=== PATIENT | female | born 1950 | race Caucasian/White ===

== ENCOUNTER 2022-09-24 11:30 | Inpatient (IN) ==
[2022-09-24] MEDS ORDERED: NS 1/2 1,000 ML IV 1,000 ML IV ONE (13:15)
[2022-09-24] MEDS: NS 1/2 1,000 ML IV 1,000 ML IV SCH (13:20)
[2022-09-24] MEDS: ROBITUSSIN DM PO SCH ×3 (13:20→20:21)
[2022-09-24] MEDS: LEVAQUIN PREMIX IV 750 MG 750 MG/150 ML BAG IV SCH (13:21)
[2022-09-24] MEDS: FORTAZ or TAZICEF VIAL INJ 1 G in NS 100 ML IV 100 ML IV SCH ×3 (13:21→22:03)
[2022-09-24 13:47] VITALS: BMI 25.8
[2022-09-24 14:06] LABS: BASOPHILS # (AUTO) 0.1 X10^3/uL (0.0-0.1); BASOPHILS % (AUTO) 0.7 % (0.2-1.0); EOSINOPHILS # (AUTO) 0.1 x10^3/uL (0.0-0.2); EOSINOPHILS % (AUTO) 0.7 % (0.9-2.9); HEMATOCRIT 37.4 % (36.0-47.0); HEMOGLOBIN 12.6 g/dL (12.0-16.0); LYMPHOCYTES # (AUTO) 2.4 X10^3/uL (1.3-2.9); LYMPHOCYTES % (AUTO) 26.5 % (21.0-51.0); MEAN CORPUSCULAR HEMOGLOBIN 28.6 pg (27.0-34.0); MEAN CORPUSCULAR HGB CONC 33.7 g/dL (33.0-35.0); MEAN CORPUSCULAR VOLUME 84.8 fL (80.0-100.0); MEAN PLATELET VOLUME 10.1 fL (7.4-11.0); MONOCYTES # (AUTO) 0.8 x10^3/uL (0.3-0.8); MONOCYTES % (AUTO) 8.8 % (0.0-13.0); NEUTROPHILS # (AUTO) 5.7 x10^3/uL (2.2-4.8); NEUTROPHILS % (AUTO) 63.3 % (42.0-75.0); RED BLOOD COUNT 4.41 X10^6/uL (3.5-5.4)
[2022-09-24 14:13] LABS: ALANINE AMINOTRANSFERASE 26 Units/L (12-78); ALBUMIN 3.6 g/dL (3.4-5.0); ALKALINE PHOSPHATASE 86 Units/L (46-116); ASPARTATE AMINO TRANSFERASE 17 Units/L (15-37); BLOOD UREA NITROGEN 23 mg/dL (7-18); CALCIUM 9.6 mg/dL (8.5-10.1); CARBON DIOXIDE 24.7 mmol/L (21-32); CHLORIDE 105 mmol/L (98-107); CREATININE 1.04 mg/dL (0.55-1.02); SODIUM 141 mmol/L (136-145); TOTAL PROTEIN 6.9 g/dL (6.4-8.2); eGFR NON BLACK RACES 56 (>60)
[2022-09-24] MEDS ORDERED: TYLENOL 500 MG TAB EXTRA STRENGTH PO ONE (16:16)
[2022-09-24] MEDS: DUONEB 0.5 MG/3 MG (3 mL) NEB SCH ×2 (17:58→20:25)
[2022-09-24] MEDS ORDERED: REMDESIVIR 200 MG in NS 250 ML IV 250 ML IV ONE (19:13)
[2022-09-24] MEDS ORDERED: PULMICORT NEB TX 0.5 MG NEB ONE (19:17)
[2022-09-24] MEDS: TUSSIONEX PENNKINETIC SUSP PO PRN (20:21)
[2022-09-24] MEDS: PULMICORT NEB TX 0.5 MG NEB SCH (20:25)
[2022-09-24] MEDS: SOLU-Medrol 125 MG VIAL IVP SCH (22:03)
--- NOTE | 2022-09-24 22:25 | RAD ---
HISTORYPNEUMONIASTUDYCHEST, PA/LAT ADULTCOMPARISONNone.TECHNIQUEFrontal and lateral views of the chest were obtained.FINDINGSThe heart is not enlarged. There is no focal infiltrate or effusion. There is no pneumothorax. The osseous structures are intact. There is evidence for anterior cervical interbody fusion of the lower cervical spine.IMPRESSIONNo active pulmonary disease.Electronically signed by: Kristy Hunter (Sep 24, 2022 22:24:11)
[2022-09-25] MEDS: NS 1/2 1,000 ML IV 1,000 ML IV SCH ×3 (05:36→16:09)
[2022-09-25] MEDS: SOLU-Medrol 125 MG VIAL IVP SCH ×3 (05:36→22:09)
[2022-09-25] MEDS: FORTAZ or TAZICEF VIAL INJ 1 G in NS 100 ML IV 100 ML IV SCH ×3 (05:36→22:07)
[2022-09-25 06:25] LABS: BASOPHILS % (AUTO) 0.5 % (0.2-1.0); EOSINOPHILS % (AUTO) 0.1 % (0.9-2.9); HEMATOCRIT 39.3 % (36.0-47.0); HEMOGLOBIN 13.1 g/dL (12.0-16.0); LYMPHOCYTES # (AUTO) 1.1 X10^3/uL (1.3-2.9); LYMPHOCYTES % (AUTO) 15.3 % (21.0-51.0); MEAN CORPUSCULAR HEMOGLOBIN 28.6 pg (27.0-34.0); MEAN CORPUSCULAR HGB CONC 33.3 g/dL (33.0-35.0); MEAN CORPUSCULAR VOLUME 85.9 fL (80.0-100.0); MEAN PLATELET VOLUME 9.7 fL (7.4-11.0); MONOCYTES # (AUTO) 0.1 x10^3/uL (0.3-0.8); MONOCYTES % (AUTO) 1.6 % (0.0-13.0); NEUTROPHILS % (AUTO) 82.5 % (42.0-75.0); RED BLOOD COUNT 4.58 X10^6/uL (3.5-5.4); RED CELL DISTRIBUTION WIDTH 13.7 % (11.6-16.5); WHITE BLOOD COUNT 7.3 X10^3/uL (3.6-10.0)
[2022-09-25 06:37] LABS: ALANINE AMINOTRANSFERASE 27 Units/L (12-78); ALBUMIN 3.3 g/dL (3.4-5.0); ALKALINE PHOSPHATASE 103 Units/L (46-116); ASPARTATE AMINO TRANSFERASE 20 Units/L (15-37); BLOOD UREA NITROGEN 20 mg/dL (7-18); CALCIUM 9.4 mg/dL (8.5-10.1); CARBON DIOXIDE 24.4 mmol/L (21-32); CHLORIDE 106 mmol/L (98-107); COR NA(FOR HYPERGLY) 143 mmol/L (136-145); CREATININE 1.13 mg/dL (0.55-1.02); SODIUM 141 mmol/L (136-145); TOTAL PROTEIN 6.9 g/dL (6.4-8.2); eGFR NON BLACK RACES 50 (>60)
[2022-09-25] MEDS: LEVAQUIN PREMIX IV 750 MG 750 MG/150 ML BAG IV SCH (08:16)
[2022-09-25] MEDS: ROBITUSSIN DM PO SCH ×4 (08:16→22:11)
[2022-09-25] MEDS: DUONEB 0.5 MG/3 MG (3 mL) NEB SCH ×2 (08:45→12:21)
[2022-09-25] MEDS: PULMICORT NEB TX 0.5 MG NEB SCH (08:45)
[2022-09-25] MEDS: PATIENT'S HOME MEDICATION PO SCH (11:21)
[2022-09-25] MEDS ORDERED: XOPENEX 1.25 MG/3 ML NEBULE NEB ONE (12:26)
[2022-09-25] MEDS: XOPENEX 1.25 MG/3 ML NEBULE NEB SCH ×2 (12:40→17:23)
[2022-09-25] MEDS ORDERED: NS 1/2 1,000 ML IV 1,000 ML IV ONE (13:07)
[2022-09-25] MEDS: COLACE CAP 100 MG PO PRN (13:22)
[2022-09-25] MEDS: MILK OF MAGNESIA PO PRN (13:23)
[2022-09-25] MEDS: PROTONIX TAB 40 MG PO SCH ×2 (13:23→22:08)
[2022-09-25] MEDS: COZAAR PO SCH (13:23)
[2022-09-25] MEDS ORDERED: REMDESIVIR 100 MG in NS 250 ML IV 250 ML IV SCH (21:00)
[2022-09-25] MEDS: AMBIEN PO PRN (22:16)
[2022-09-25] MEDS: NORCO 10/325 TAB PO PRN (22:16)
[2022-09-25] MEDS: TUSSIONEX PENNKINETIC SUSP PO PRN (22:16)
[2022-09-26] MEDS ORDERED: CATAPRES TAB 0.1 MG PO ONE ×2 (00:38→17:27)
--- NOTE | 2022-09-26 01:31 | EKG ---
Test Reason : hypertension protocol Blood Pressure : */* mmHG Vent. Rate : 61 BPM Atrial Rate : 61 BPM P-R Int : 154 ms QRS Dur : 86 ms QT Int : 440 ms P-R-T Axes : 63 -5 62 degrees QTc Int : 442 ms Normal sinus rhythm Minimal voltage criteria for LVH, may be normal variant ( R in aVL ) Borderline ECG No previous ECGs available Confirmed by Mino Salazar ([id number]) on 09/26/2022 9:38:37 AM Referred By: Confirmed By: Mino Salazar
[2022-09-26] MEDS ORDERED: VALIUM PO ONE (02:47)
[2022-09-26] MEDS ORDERED: VALIUM ONE (02:50)
[2022-09-26 05:00] LABS: BASOPHILS # (AUTO) 0.1 X10^3/uL (0.0-0.1); BASOPHILS % (AUTO) 0.7 % (0.2-1.0); HEMATOCRIT 36.8 % (36.0-47.0); HEMOGLOBIN 12.1 g/dL (12.0-16.0); LYMPHOCYTES # (AUTO) 1.3 X10^3/uL (1.3-2.9); LYMPHOCYTES % (AUTO) 9.4 % (21.0-51.0); MEAN CORPUSCULAR HEMOGLOBIN 28.1 pg (27.0-34.0); MEAN CORPUSCULAR HGB CONC 32.9 g/dL (33.0-35.0); MEAN CORPUSCULAR VOLUME 85.5 fL (80.0-100.0); MEAN PLATELET VOLUME 9.9 fL (7.4-11.0); MONOCYTES # (AUTO) 0.5 x10^3/uL (0.3-0.8); MONOCYTES % (AUTO) 3.5 % (0.0-13.0); NEUTROPHILS # (AUTO) 12.1 x10^3/uL (2.2-4.8); NEUTROPHILS % (AUTO) 86.4 % (42.0-75.0); WHITE BLOOD COUNT 13.9 X10^3/uL (3.6-10.0)
[2022-09-26 05:17] LABS: ALANINE AMINOTRANSFERASE 24 Units/L (12-78); ALBUMIN 3.4 g/dL (3.4-5.0); ALKALINE PHOSPHATASE 111 Units/L (46-116); ASPARTATE AMINO TRANSFERASE 13 Units/L (15-37); BLOOD UREA NITROGEN 16 mg/dL (7-18); CALCIUM 9.5 mg/dL (8.5-10.1); CARBON DIOXIDE 25.3 mmol/L (21-32); CHLORIDE 109 mmol/L (98-107); COR NA(FOR HYPERGLY) 146 mmol/L (136-145); CREATININE 1.06 mg/dL (0.55-1.02); SODIUM 144 mmol/L (136-145); TOTAL PROTEIN 6.6 g/dL (6.4-8.2); eGFR NON BLACK RACES 54 (>60)
[2022-09-26] MEDS ORDERED: NS 1/2 1,000 ML IV 1,000 ML IV ONE (05:48)
[2022-09-26] MEDS: NS 1/2 1,000 ML IV 1,000 ML IV SCH (05:50)
[2022-09-26] MEDS: SOLU-Medrol 125 MG VIAL IVP SCH (05:51)
[2022-09-26] MEDS: FORTAZ or TAZICEF VIAL INJ 1 G in NS 100 ML IV 100 ML IV SCH (05:52)
[2022-09-26] MEDS: XOPENEX 1.25 MG/3 ML NEBULE NEB SCH ×4 (08:37→21:13)
[2022-09-26] MEDS: PULMICORT NEB TX 0.5 MG NEB SCH ×2 (08:37→21:13)
[2022-09-26] MEDS ORDERED: PROPRANOLOL 80 MG PO SCH (09:00)
[2022-09-26] MEDS: LEVAQUIN PREMIX IV 750 MG 750 MG/150 ML BAG IV SCH (09:13)
[2022-09-26] MEDS: PROTONIX TAB 40 MG PO SCH ×2 (09:13→21:23)
[2022-09-26] MEDS: COZAAR PO SCH (09:13)
[2022-09-26] MEDS: PATIENT'S HOME MEDICATION PO SCH (09:14)
[2022-09-26] MEDS: ROBITUSSIN DM PO SCH ×3 (09:17→21:24)
[2022-09-26] MEDS: TUSSIONEX PENNKINETIC SUSP PO PRN ×2 (09:21→19:51)
[2022-09-26] MEDS: NORCO 10/325 TAB PO PRN ×2 (11:38→19:50)
[2022-09-26] MEDS ORDERED: SOLU-Medrol 125 MG VIAL IVP SCH (14:00)
[2022-09-26] MEDS ORDERED: CATAPRES TAB 0.1 MG ONE (17:31)
[2022-09-26] MEDS: COLACE CAP 100 MG PO PRN (19:49)
[2022-09-26] MEDS: AMBIEN PO PRN (19:49)
[2022-09-26] MEDS: MILK OF MAGNESIA PO PRN (19:51)
[2022-09-27 05:58] LABS: BASOPHILS # (AUTO) 0.1 X10^3/uL (0.0-0.1); EOSINOPHILS % (AUTO) 0.2 % (0.9-2.9); HEMATOCRIT 36.7 % (36.0-47.0); LYMPHOCYTES # (AUTO) 3.1 X10^3/uL (1.3-2.9); LYMPHOCYTES % (AUTO) 26.7 % (21.0-51.0); MEAN CORPUSCULAR HEMOGLOBIN 28.1 pg (27.0-34.0); MEAN CORPUSCULAR HGB CONC 32.7 g/dL (33.0-35.0); MEAN CORPUSCULAR VOLUME 85.8 fL (80.0-100.0); MEAN PLATELET VOLUME 10.1 fL (7.4-11.0); MONOCYTES # (AUTO) 0.7 x10^3/uL (0.3-0.8); MONOCYTES % (AUTO) 6.2 % (0.0-13.0); NEUTROPHILS # (AUTO) 7.7 x10^3/uL (2.2-4.8); NEUTROPHILS % (AUTO) 65.9 % (42.0-75.0); RED BLOOD COUNT 4.28 X10^6/uL (3.5-5.4); RED CELL DISTRIBUTION WIDTH 14.5 % (11.6-16.5); WHITE BLOOD COUNT 11.8 X10^3/uL (3.6-10.0)
[2022-09-27 06:08] LABS: ALANINE AMINOTRANSFERASE 20 Units/L (12-78); ALBUMIN 3.3 g/dL (3.4-5.0); ALKALINE PHOSPHATASE 98 Units/L (46-116); ASPARTATE AMINO TRANSFERASE 12 Units/L (15-37); BLOOD UREA NITROGEN 23 mg/dL (7-18); CALCIUM 9.3 mg/dL (8.5-10.1); CARBON DIOXIDE 28.3 mmol/L (21-32); CHLORIDE 108 mmol/L (98-107); COR CA(FOR HYPOALB) 9.9 mg/dL (8.5-10.1); CREATININE 1.04 mg/dL (0.55-1.02); SODIUM 143 mmol/L (136-145); TOTAL PROTEIN 6.1 g/dL (6.4-8.2); eGFR NON BLACK RACES 56 (>60)
[2022-09-27] MEDS ORDERED: MICRO K EXTEN CAP 10 MEQ PO PRN (06:21)
[2022-09-27] MEDS ORDERED: K-DUR TAB 20 MEQ PO PRN (06:21)
[2022-09-27] MEDS ORDERED: POTASSIUM CHLORIDE LIQ 20 MEQ UDC PO PRN (06:21)
[2022-09-27] MEDS ORDERED: KLOR-CON PO PRN (06:21)
[2022-09-27 07:38] VITALS: BP 196/81
[2022-09-27] MEDS: PULMICORT NEB TX 0.5 MG NEB SCH (08:45)
[2022-09-27] MEDS: XOPENEX 1.25 MG/3 ML NEBULE NEB SCH (08:45)
[2022-09-27] MEDS ORDERED: DECADRON TAB PO SCH (09:00)
[2022-09-27] MEDS: ROBITUSSIN DM PO SCH (09:15)
[2022-09-27] MEDS: PROTONIX TAB 40 MG PO SCH (09:16)
[2022-09-27] MEDS: COZAAR PO SCH (09:16)
[2022-09-27] MEDS: NORCO 10/325 TAB PO PRN (09:17)
[2022-09-27] MEDS: PATIENT'S HOME MEDICATION PO SCH (09:17)
--- NOTE | 2022-09-28 06:09 | RAD ---
HISTORYPNEUMONIA, SOBSTUDYCHEST, 1 [id number]/2023FINDINGSThe cardiomediastinal silhouette is normal in size. No acute airspace disease. No pneumothorax or effusion. The bony thorax appears intact. ACDF hardware.IMPRESSIONNo acute cardiopulmonary disease.Electronically signed by: IWLIAM THOMSON (Sep 28, 2022 06:08:21)
== END 2022-09-27 11:55 | disposition home or self-care (01) | DRG 177 ==
LOC: MED/SURG 12:39
PROVIDERS: ADMIT Internal Medicine; ATTEND Internal Medicine